=== PATIENT | male | born 1950 | race Caucasian/White ===

== ENCOUNTER 2017-05-04 08:37 | Emergency (ER) | payer OTHER ==
[2017-05-04 11:38] VITALS: BP 112/76
== END 2017-05-04 11:38 | disposition home or self-care (01) ==
LOC: ED 08:37
DX: J20.9 Acute bronchitis, unspecified (principal); I10 Essential (primary) hypertension; E11.9 Type 2 diabetes mellitus without complications; E78.00 Pure hypercholesterolemia, unspecified; Z79.899 Other long term (current) drug therapy
CPT/HCPCS: J7613; J7644; Q0092